=== PATIENT | female | born 1945 | race Caucasian/White ===

== ENCOUNTER 2017-06-16 08:22 | Day surgery (SDC) | payer OTHER ==
[~2017-06-16] VITALS: Ht 264.2 cm; Wt 86.2 kg
[~2017-06-16 08:22] MED LIST: AMLODIPINE BESYL5 MG PO; AMRIX15 MG PO; ASPIR-TRIN325 M1 PO; ASPIRIN81 M2 PO; ATIVAN0.5 MG PO; ATORVASTATIN CA20 MG PO; Aspirin E.C. PO; Ativan PO; BUSPAR5 MG PO; CALTRATE 6001 TABLE2 PO; CELEBREX200 MG PO; COZAAR100 MG PO; COZAAR50 MG PO; CYMBALTA60 MG PO; DESYREL100 MG PO; DULERA 100 MCG/13 GM IH; ENDOCET 10-3251 EACH PO; ENDOCET 7.5-321 EACH PO; ERGOCALCIF50000 UNIT PO; EXCEDRIN MIGRA1 EAC3 PO; FEOSOL325 MG PO; FLEXERIL10 MG PO; GABAPENTIN300 MG PO; K-DUR10 MEQ PO; KLONOPIN1 MG PO; LEVOTHYROXINE75 MCG PO; LIPITOR40 MG PO; LOSARTAN POTASS50 MG PO; LYRICA75 MG PO; Levothroid,Synthroid PO; Lopid PO; NEURONTIN300 MG PO; NORVASC5 MG PO; PROAIR HFA8.5 GM IH; PROTONIX40 MG PO; ROCALTROL0.25 MCG PO; SENOKOT S,PE1 TABLET PO; SYNTHROID25 MCG PO; SYNTHROID75 MCG PO; THERAGRAN1 TABLET PO; TIZANIDINE HCL4 M1 PO; VERAPAMIL HCL80 MG PO; VITAMIN D32000 UNI1 PO; Vicodin,Lortab 5/500 PO; ZYBAN 150 MG T150 MG PO
[2017-06-16 08:49] VITALS: BP 149/60
[2017-06-16 13:48] VITALS: BP 146/70
[2017-06-16 14:52] VITALS: BP 125/60
== END 2017-06-16 14:55 | disposition home or self-care (01) ==
LOC: SDC 08:22
DX: M75.101 Unspecified rotator cuff tear or rupture of right shoulder, not specified as traumatic (principal); M19.011 Primary osteoarthritis, right shoulder; G56.01 Carpal tunnel syndrome, right upper limb; I10 Essential (primary) hypertension; E07.9 Disorder of thyroid, unspecified; F31.9 Bipolar disorder, unspecified; Z96.653 Presence of artificial knee joint, bilateral; Z90.49 Acquired absence of other specified parts of digestive tract; Z90.710 Acquired absence of both cervix and uterus
CPT/HCPCS: C1713; J0131; J0171; J0330; J0690; J1100; J2250; J2405; J2795; J3010; S0020